=== PATIENT | male | born 1995 | race Caucasian/White ===

== ENCOUNTER → 2018-02-23 | Outpatient (CLI) | payer BC ==
--- NOTE | 2018-02-24 08:38 | XR ---
EXAMINATION TYPE: XR knee complete RT DATE OF EXAM: 02/23/2018 COMPARISON: None HISTORY: Chronic right knee pain TECHNIQUE: Three-view right knee FINDINGS: No joint effusion is evident. Joint spaces are preserved. No acute fractures or dislocation s are evident. MRI is available if soft tissue evaluation would be of benefit. IMPRESSION: 1. Normal three-view right knee
== END | disposition home or self-care (01) ==
LOC: RADXRYALE 16:23
PROVIDERS: ATTEND Physician Assistant Medical
DX: M25.561 Pain in right knee (principal)